=== PATIENT | male | born 1940 | race Caucasian/White ===

== ENCOUNTER 2019-03-12 01:56 | Inpatient (IN) | payer OTHER ==
[~2019-03-12] VITALS: Ht 175.3 cm; Wt 90.4 kg
[2019-03-12] MEDS ORDERED: LABETALOL HCL100 MG PO (02:10)
[2019-03-12] MEDS ORDERED: PREDNISONE20 MG PO (02:11)
[2019-03-12] MEDS ORDERED: CILOSTAZOL100 MG PO (02:11)
[2019-03-12] MEDS ORDERED: LISINOPRIL20 MG PO (02:11)
[2019-03-12] MEDS ORDERED: LASIX40 MG PO (02:12)
[2019-03-12] MEDS ORDERED: ULTRAM50 MG PO (02:13)
[2019-03-12] MEDS ORDERED: NORCO 5-325 TA1 EACH PO (02:13)
[2019-03-12] MEDS ORDERED: ASPIR 8181 MG PO (02:13)
[2019-03-12] MEDS ORDERED: VITAMIN D-32000 UNIT PO (02:14)
[2019-03-12] MEDS ORDERED: CALCIUM500 MG PO (02:14)
--- NOTE | 2019-03-12 03:45 | NUR ---
patient arrived to unit via stretcher, assisted to bed with RN Lizbet and DENISSE Dorantes. Breathing is unlabored, SpO2 96% on 3L O2 via oxymask. Patient reports 5/10 substernal chest pain, describes as tight and heavy feeling. Denies pain radiating. Alert and oriented x4, peripheral pulses felt throughout, 1+ edema in BLE noted. Lungs are clear, breathing is unlabored. Snyder present, pale yellow urine noted, IV sites intact.
--- NOTE | 2019-03-12 04:02 | NUR ---
2 mg IV morphine given for 6/10 substernal chest pain, no changes in characteristics. Patient denies further needs. Call light within reach.
--- NOTE | 2019-03-12 04:37 | NUR ---
Patient continues to have 5/10 substernal chest pain, no changes in pain character, another 2 mg IV morphine given. Patient denies futher needs.
--- NOTE | 2019-03-12 04:41 | NUR ---
Patient placed back on BiPAP, SpO2 96% on 30% FiO2. Patient also given 2 mg IV morphine PRN for continued 6/10 chest pain in sternum described as "tight and pressure." Heart rate 112, RR 15, BP 107/67 (76) after morphine administration. Patietn denies further needs at this time. Call light within reach, at bedside.
--- NOTE | 2019-03-12 05:10 | NUR ---
Dr. Conrad notified that patient continues to have 3 to 4/10 substernal chest pain, received order for x1 dose of 4 mg IV morphine. Patient's breathing remains unlabored.
--- NOTE | 2019-03-12 05:30 | NUR ---
x1 dose of IV morphine not given due to systolic of 89 and MAP 58, no changes in patient's mentation, breathing remains unlabored.
--- NOTE | 2019-03-12 05:59 | NUR ---
Patient taken off BiPAP due to BP of 79/54 (59), heart rate 109. Patient reports 3/10 pain in chest, substernal, characteristics remain the same.
--- NOTE | 2019-03-12 06:18 | NUR ---
Notified Dr. Conrad that patient has had sustained hypotension with systolic between 72 and 76, MAP between 52 and 58, also notified her that one time dose of 4 mg IV morphine not given due to hypotension. NS bolus of 500 ml over one hour ordered. No changes in CP, remains 3/10. Patient is drowsy, responds promptly to voice.
--- NOTE | 2019-03-12 06:20 | NUR ---
Dr. Conrad notified that patient's repeat troponin was 0.463 ng/ml, received order for stat EKG. Patient has had no change in chest pain, states it is 3/10. Restful with eyes closed, SpO22 94% on 2L O2 via oxymask.
--- NOTE | 2019-03-12 06:48 | EKG ---
[facility] [address] [facility] [place] [address] Signed Sinus tachycardia Possible Left atrial enlargement Incomplete right bundle branch block Borderline ECG No previous ECGs available Confirmed by SIMI BOLIVAR MD ([id number]) on 03/12/2019 6:47:55 AM Electronically Signed By: SIMI BOLIVAR MD 03/12/19 0648 PATIENT NAME: DAMION LOO Electrocardiogram DATE OF : 38 PHYSICIAN: SIMI BOLIVAR MD REPORT #: [id number] REPORT IS CONFIDENTIAL AND NOT TO BE RELEASED WITHOUT AUTHORIZATION
--- NOTE | 2019-03-12 07:04 | NUR ---
DR. BOLIVAR TO BEDSIDE TO EVALUATE PATIENT
--- NOTE | 2019-03-12 09:17 | NUR ---
UT C/O CHEST P[RESSURE, 4MG MORPHINE IVP GIVEN AT THIS TIME. FAMILY REMAINS AT THE BEDSIDE.
[2019-03-12] MEDS ORDERED: PREDNISONE5 MG PO (09:33)
[2019-03-12] MEDS ORDERED: FINASTERIDE5 MG PO (09:35)
[2019-03-12] MEDS ORDERED: ATORVASTATIN CA20 MG PO (09:35)
--- NOTE | 2019-03-12 10:00 | NUR ---
SPOKE WITH PATIENT, SON IN ROOM. IS ASLEEP IN ROOM. PATIENT STATES HE LIVES WITH IN [place]. STATES HE DOES HAVE PCP THERE AT [facility]. PATIENT STATES HE PLANS TO RETURN HOME AT DISCHARGE. IS NORMALLY INDEPENDENT, DOES HAVE A WALKER AND CANE. PATIENT DENIES NEEDS FOR SAFE DISCHARGE HOME. DOES UNDERSTAND HE SHOULD NOT DRIVE SELF HOME. SON STATES HE IS HERE TO HELP WITH THIS. DISCUSSED HE SHOULD UNDERSTAND DIAGNOSIS, FOLLOW UP NEEDS, MEDICATIONS AND SIDE EFFECTS BEFORE DISCHARGE. THEY STATE UNDERSTANDING. QUESITONS ANSWERED. WILL CONTINUE TO FOLLOW NEEDED. STAFF UPDATED.
[2019-03-12] MEDS ORDERED: TYLENOL EXTRA500 MG PO (10:23)
[2019-03-12] MEDS ORDERED: MULTI VITAMIN1 EACH PO (10:23)
--- NOTE | 2019-03-12 10:24 | NUR ---
MED REC COMPLETE
--- NOTE | 2019-03-12 14:58 | NUR ---
PT STATES THAT CHEST PRESSURE IS LESS, 2 RABBITS ON HIS CHEST. HAS BEEN RESTING COMFORTABLE IN THE ROOM .
--- NOTE | 2019-03-12 15:52 | EKG ---
[facility] [address] [facility] [place] [address] Signed Sinus rhythm with premature atrial complexes Possible Left atrial enlargement Incomplete right bundle branch block Nonspecific ST and T wave abnormality Prolonged QT Abnormal ECG When compared with ECG of 12-MAR-2019 02:04, premature atrial complexes are now present ST no longer elevated in Anterior leads Nonspecific T wave abnormality now evident in Anterolateral leads Confirmed by SIMI BOLIVAR MD ([id number]) on 03/12/2019 3:52:15 PM Electronically Signed By: SIMI BOLIVAR MD 03/12/19 1552 PATIENT NAME: DAMION LOO Electrocardiogram DATE OF : 38 PHYSICIAN: SIMI BOLIVAR MD REPORT #: [id number] REPORT IS CONFIDENTIAL AND NOT TO BE RELEASED WITHOUT AUTHORIZATION
--- NOTE | 2019-03-12 17:25 | NUR ---
PT FEELING BETTER AT THIS TIME, WAS ASKING ABOUT PAIN MEDS FOR SLEEP TONIGHT. PT GIVEN SOME CLEAR LIQUIDS AT THIS TIME. FAMILY HAS LEFT AT THIS TIME. PT DENIES PAIN AT THIS TIME, AND HAS LESS CHEST PRESSURE.
--- NOTE | 2019-03-12 17:48 | NUR ---
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
--- NOTE | 2019-03-12 18:56 | NUR ---
LAB HERE AT THIS TIME TO OBTAIN SAMPLE.
--- NOTE | 2019-03-12 19:52 | NUR ---
CIRO IS AT THIS TIME 1.36. MD BOLIVAR IS BEING CALLED NOW. LAB CALLED AT 1950. MD BOLIVAR IS COMING TO CCU AT THIS TIME.
--- NOTE | 2019-03-12 20:00 | NUR ---
PT AT THIS TIME DENIES SOB AND CHEST PAIN. LOBES HAVE CRACKLES IN THE BASES AND EXPIRATORY WHEEZING IN THE UPPER LOBES. ABD SOUNDS ARE PRESENT. CHEST PAIN WILL COME BACK AGAIN ONCE MORPHINE WEARS OFF STATED BY PT. RADIAL PULSES +2, BILATERAL ARM STRENGTH +5. LEFT LEG STRENGTH +5, RIGHT LEG STRENGTH +2. PEDIS PULSES +1, BILATERAL LOWER LEG/FOOT EDEMA PRESENT +1. PT IS AAO X4. WILL CONTINUE TO MONITOR.
--- NOTE | 2019-03-12 22:00 | NUR ---
PT AT THIS TIME IS SLEEPING. V/S ARE BETTER, HR <100. NO NEW CONCERNS NOTED AT THIS TIME.
--- NOTE | 2019-03-13 | NUR ---
PT AT THIS TIME IS AWAKE DUE TO LEFT SHOULDER PAIN WHICH HE OCCASIONALLY GETS. PRN PO TYLENOL WAS GIVEN. PT DENIES SOB AND CHEST PAIN AT THIS TIME. ALL LOBES HAVE EXPIRATORY WHEEZING PRESENT. WILL CONTINUE TO MONITOR. NO NEW CONCERNS NOTED OTHERWISE.
--- NOTE | 2019-03-13 01:51 | NUR ---
LEFT SHOULDER PAIN IS WORSE AT THIS TIME 06/09. GAVE 2MG IV MORPHINE. WILL CONTINUE TO MONITOR. V/S OVERLL ARE WDL.
--- NOTE | 2019-03-13 03:47 | NUR ---
0315 PT CALLED OUT FOR SOB. HR AT THAT TIME JUMPED UP TO THE 130'S AND WAS SUSTAINED. PT ALSO HAD CHEST PRESSURE AGAIN. UPON ASCULTAION OF HIS LUNG, ALL LOBES SOUNDED VERY CONSTRICTED WITH NOT MUCH AIR MOVEMENT PRESENT. MD BOLIVAR WAS CALLED AT ABOUT 0318. LASIX 20MG IV ONCE ORDER WAS RECEIVED AND MORNING LABS WERE TO BE DRAWN EARLY WELL. A TROPONIN LAB WAS ADDED WELL SINCE THERE WAS NONE SCHEDULED A FOLLOW-UP FOR HIS CRITICAL VALUE AT 1900 ON 03/12/19. PT IS NOW ON BI-PAP AT THIS TIME. PT ALSO RECEIVED A NEB TX. WILL CONTINUE TO MONITOR.
--- NOTE | 2019-03-13 04:11 | NUR ---
SOB AND CHEST PAIN ARE SLIGHLTY BETTER AT THIS TIME STATED BY PT. WILL CONTINUE TO MONITOR.
--- NOTE | 2019-03-13 05:30 | NUR ---
RECEIVED CRITICAL TROPONIN AT 0529 FROM LAB ([facility]) . TROPONIN IS 1.25. MD BOLIVAR WAS CALLED AT 0530 WITH RESULTS. NO ORDERS WERE GIVEN IN REGARDS TO TREATMENT. WILL CONTINUE TO MONITOR.
--- NOTE | 2019-03-13 05:51 | NUR ---
AT START OF SHIFT PT DENIED SOB AND CHEST PAIN. TROPONIN AT 1900 WAS 1.36, MD BOLIVAR WAS CALLED AND CAME TO THE UNIT. MD BOLIVAR CONSULTED WITH A DUCK FARMER WHO SUGGESTED TO KEEP THIS PT HERE. PT DID RECEIVE A ONE TIME ORDER OF 5MG LOPRESSOR IV. LOBES AT START OF SHIFT HAD CRACKLES IN HE BASES AND EXPIRATORY WHEEZING IN THE UPPER LOBES. BILAERAL LOWER LEG EDEMA +1, PEDIS PULSES +1, RIGHT LEG STRENGTH +2, OTHERWISE OVERALL STRENGTH +5. PT RESTED FOR A WHILE AND AT AROUND 0000 STARTED TO COMPLAIN OF LEFT SHOULDER PAIN. PRN TYLENOL AND A HOT PACK WAS GIVEN. AT 0315 PT CALLED OUT STATING HE WAS SHORT OF BREATH. HIS HR WAS IN THE 130'S SUSTAINED. O2 SATS DROPPED TO 86% OR SO ON 21 O2 OXYMASK. MD BOLIVAR WAS CALLED AGAIN, 20MG IV LASIX WAS GIVEN, 4MG MORPHINE WAS GIVEN AND RT GAVE NEB TX. SINCE THEN CHEST PAIN AND SOB HAVE SUBSIDED ENOUGH TO THE POINT WHERE PT HAS BEEN ABLE TO SLEEP AGAIN. LABS WERE DRAWN EARLY AND AN ORDER FOR TROPONIN WAS ADDED. LAB CALLED AT 0529 WITH A CRITICAL TROPONIN OF 1.25, MD BOLIVAR WAS NOTIFIED RIGHT AWAY. NO NEW ORDERS WERE GIVEN. PT AT THIS TIME IS RESTIN WITH BI-PAP ON.
--- NOTE | 2019-03-13 07:30 | NUR ---
REPORT RECIEVED. PATIENT IN RESTFUL SITTING UP IN BED ON BIPAP.
--- NOTE | 2019-03-13 08:00 | NUR ---
ASSESSMENT DONE. TALKED WITH PAIHALEY ABOUT PLAN OF CARE FOR DAY. IS UNDERSTANDING. HAS MILD CHEST DISCOMFORT 2/. DENIES NEED FOR PAIN MEDICATION. HALLMAN CATH PATENT WITH CLEAR YELLOW URINE NOTED. IS DIAPHOTIC. DENIES NAUSEA.
--- NOTE | 2019-03-13 08:02 | EKG ---
[facility] [address] [facility] [place] [address] Signed Sinus tachycardia Possible Left atrial enlargement Nonspecific ST abnormality Abnormal ECG When compared with ECG of 12-MAR-2019 06:49, premature atrial complexes are no longer present Nonspecific T wave abnormality no longer evident in Anterior leads Confirmed by SIMI BOLIVAR MD ([id number]) on 03/13/2019 8:02:23 AM Electronically Signed By: SIMI BOLIVAR MD 03/13/19 0802 PATIENT NAME: DAMION LOO Electrocardiogram DATE OF : 38 PHYSICIAN: SIMI BOLIVAR MD REPORT #: [id number] REPORT IS CONFIDENTIAL AND NOT TO BE RELEASED WITHOUT AUTHORIZATION
--- NOTE | 2019-03-13 09:00 | NUR ---
DR. BOLIVAR IS HERE TO SEE PATIENT AND TALK WITH FAMILY. JULITA RECIEVED TO GIVE ROUTINE MEDICATIONS, HOLD LISINOPRIL. THIS DONE.
--- NOTE | 2019-03-13 09:30 | NUR ---
SAT AT BEDSIDE. SPONGE BATH GIVEN. THEN TO CHAIR WITH ASSIST. O2 IS OXYMASK AT 4 L. H UP TO 122 WITH ANSFER TO CHAIR. DENIES INCREASED CHEST PAIN OR SHORTNESS OF BREATH.
--- NOTE | 2019-03-13 09:50 | NUR ---
MORPHINE 4 MG IV GIVEN FOR C/O SUBSTERNAL CHEST PAIN 4/10 AND LEFT SHOULDER PAIN, 2/10. PATIENT IS SITTING IN CHAIR. FAMILY IS IN ROOM. O2 SOURCE IS OXYMASK AT 4 L.
--- NOTE | 2019-03-13 10:00 | NUR ---
BACK TO BED WITH ASSIST. WALKER USED FOR TRANSFERS. AND SON REMAIN IN ROOM. BIPAP REAPPLIED UPON RETURN TO BED.
--- NOTE | 2019-03-13 10:30 | NUR ---
O2 SOURCE TO NC AT 2 L. JELLO GIVEN. STATES THIS IS THE BEST HE HAS FELT SINCE BEING IN HOSPITAL.
--- NOTE | 2019-03-13 11:15 | NUR ---
DR. BOLIVAR AWARE OF BP-79/57 (64). NO FUTHER ORDERS AT THIS TIME.
--- NOTE | 2019-03-13 12:00 | NUR ---
SAT UP IN BED TO TAKE LUNCH, SOUP AND PUDDING. DENIES NAUSEA. DENEIS CHEST PAIN, SHORTNESS OF BRREATH, SKIN IN WARM AND SLIGHTLY DAMP.
--- NOTE | 2019-03-13 13:20 | NUR ---
LASIX 20 MG IV GIVEN., PER ORDERS. HALLMAN CATH PATENT. SL BC AC PATENT.
--- NOTE | 2019-03-13 14:00 | NUR ---
NAPPING. RESP EQUAL AND NON LABORED.
--- NOTE | 2019-03-13 16:20 | NUR ---
dr. loza aware of BP-78/59 (59). ORDERS RECIEVED TO GIVE 250 ML NS OVER ONE HR.
--- NOTE | 2019-03-13 17:25 | NUR ---
ns 250 ml infused.
--- NOTE | 2019-03-13 18:52 | NUR ---
DR. BOLIVAR UPDATED ON PATIENT STATUS. NO FUHER ORDERS AT THIS TIME. PATIENT IS RESTFUL WATCHING TV. DENIES NEED FOR PAIN MEDICATION.
--- NOTE | 2019-03-13 19:30 | NUR ---
RECEIVED REPORT AT 1900, PT WAS IN BED AND APPEARED COMFORTABLE. V/S OVERALL WERE WDL WITH THE EXCEPTION OF HIS BP. PT AT THAT TIME WAS HYPOTENSIVE. PER MD BOLIVAR, THE GOAL FOR TONIGHT IS TO KEEP HIS MAP >60 AND TO KEEP HIM FREE OF CHEST PAIN.
--- NOTE | 2019-03-13 20:44 | NUR ---
PT IS STILL HYPOTENSIVE, BUT HIS MAPT IS 67 AT THIS TIME. RUL/JEANIE HAVE EXPIRATORY WHEEZING PRESENT. ALL OTHER LOBES HAVE CRACKLES PRESENT AT THIS TIME. PT DENIES ANY SOB HOWEVER. O2 SATS ARE 96% NC ON 2L O2. S1 S2 HEARD. ABD SOUNDS ARE PRESENT, PT HOWEVER HAS NOT HAD A BM SINCE 03/11/19. PT IS PASSING LOTS OF FLATUS. LEFT HAND EDEMA +1, WHICH IS NEW SINCE LAST NIGHT. BILATERAL LOWER LEG NOHEMY +1 RADIAL PULSES +2, PEDIS PULSES +1, TOES ARE WARM TO TOUCH. WILL CONTINUE TO MONITOR, NO NEW COCNERNS NOTED AT THIS TIME.
--- NOTE | 2019-03-13 21:00 | NUR ---
PT IS SLEEPING AT THIS TIME. BP LOW AT 83/66 (69). WILL CONTINUE TO MONITOR.
--- NOTE | 2019-03-13 22:00 | NUR ---
LABETELOL WAS HELD, MD BOLIVAR IS AWARE. WILL CONTINUE TO MONITOR HR/BP/ URINE OUTPUT. NEW IV SITES X2 HAVE BEEN STARTED WELL.
--- NOTE | 2019-03-13 23:02 | NUR ---
PT IS SLEEPING AT THIS TIME. URINE OUTPUT FOR THE PAST 2HRS WAS 60ML. BP STILL LOW.
--- NOTE | 2019-03-14 00:08 | NUR ---
BP AT 2330 WAS 74/56 (60). MD BOLIVAR WAS CALLED AND AN ORDER FOR A 250ML NS BOLUS WAS RECEIVED. BOLUS IS CURRENTLY RUNNING. WILL CONTINUE TO MONITOR. ALL LOBES AT THIS TIME HAVE INSPIRATORY AND EXPIRATORY WHEEZING PRESENT. WILL CONTINUE TO MONITOR. PT DENIES SOB AND CHEST PAIN. OTHERWISE SECOND ASSESSMENT HAS NOT CHANGED IN REGARDS TO OTHER SYSTEMS.
--- NOTE | 2019-03-14 01:00 | NUR ---
PT AT THIS TIME IS SLEEPING. 250ML BOLUS HAS FINISHED. BP WAS BETTER 84/63 (68). WILL CONTINUE TO MONITOR.
--- NOTE | 2019-03-14 02:58 | NUR ---
PT IS STILL SLEEPING AT THIS TIME. NO IV MORPHINE NEEDED SO FAR. V/S SO FAR ARE ACCEPTABLE GIVEN THE CIRCUMSTANCES.
--- NOTE | 2019-03-14 04:25 | NUR ---
PT AT THIS TIME IS REPORTING CHEST PAIN 3/10. 2MG MORPHINE IV TO BE GIVEN. HR AT THIS TIME IN THE LOW 120'S.
--- NOTE | 2019-03-14 04:50 | NUR ---
CHEST PAIN IS STILL 3/10. AN ADDITIONAL 2MG IV MORPHINE TO BE GIVEN. HR STILL UPPER ONE TEENS TO LOW 120'S. SBP IS >100, MAP 81 AT THIS TIME.
--- NOTE | 2019-03-14 05:41 | NUR ---
AT THIS TIME CHEST PAIN IS STILL 2/10. HR IS ANYWHERE FROM 113-139. BP 82/65 (68). MD BOLIVAR WAS CALLED. NO NEW ORDERS WERE GIVEN. WILL CONTINUE TO MONITOR.
--- NOTE | 2019-03-14 06:43 | NUR ---
BP HAS BEEN AN ISSUE ALL NIGHT OVERALL. BP HAS REMAIND LOW WITH AN OVERALL ADEQUATE MAP. URINE OUTPUT IS BOARDERLINE ADEQUATE OVERALL. LOBES AT START OF SHIFT HAD CRACKLES IN THE BASES AND WHEEZING PRESENT. AT THIS TIME NO CRACKLES ARE PRESENT. PERIPHERAL EDEMA HAS INCREASED SOME THIS SHIFT. MAINLY BILATERAL LOWER EXTREMETIES AND HIS LEFT ARM. ABD SOUNDS ARE PRESENT. O2 SATS HAVE BEEN >92% ON 2L O2 ALL NIGHT AND RR WAS MOSTLY NORMAL <20. AT 2345 BP WAS LOW AND A 250ML NS BOLUS WAS GIVEN PER MD ORDER. PT THEN SLEPT FOR A GOOD WHILE. AT 0425 PT HAD AN EPISODE OF CHEST PAIN AND 4MG MORPHINE WAS GIVEN. IT DID NOT RELIEF HIS CHEST PAIN COMPLETELY. AT ABOUT THE SAME TIME HIS HR WENT UP INTO THE 120'S AT FIRST AND THEN JUMPED HIGH 140 AT TIMES. MD BOLIVAR WAS CALLED BUT NO NEW ORDERS WERE GIVEN.
--- NOTE | 2019-03-14 08:00 | NUR ---
AWAKE, ASSESSMENT DONE. TRIP-1.48. DR. OSMEL PEREZ VIA PHONE. MD AWARE OF VITAL SIGNS. U/O, TRIP VALUE. NO FUTHER ORDERS AT THIS TIME, PLAN IS TO DISCHARGE PATIENT TODAY. PATIENT SITING UP IN BED READY TO EAT BREAKFAST.
--- NOTE | 2019-03-14 09:04 | NUR ---
PT IN SVT WITH HR IN 170'S. DR. BOLIVAR NOTIFIED.
--- NOTE | 2019-03-14 09:11 | NUR ---
DR. BOLIVAR AT THE BEDSIDE ALONG WITH THIS RN- FIRST DOSE OF 5 MG IV METOPOLOL GIVEN FOR SVT HR MAINTAINING BETWEEN 170'S-180'S
--- NOTE | 2019-03-14 09:18 | NUR ---
SECOND DOSE OF 5 MG IV METOPROLOL FOR CONTINUING SVT. DR. BOLIVAR REMAINS AT THE BEDSIDE.
--- NOTE | 2019-03-14 09:30 | NUR ---
MORPHINE 4 MG IV GIVEN FOR CHEST THIGHTNESS. SEE MONITOR PRINT OUT FOR HEART RHYTHM AND RATE, AND FREQUENT VITAL SIGNS.
--- NOTE | 2019-03-14 09:52 | NUR ---
[id number] TIME PERIOD OF FREQUENT PAUSES DURING SVT
--- NOTE | 2019-03-14 09:53 | NUR ---
THIS TELE BAND SAWING MACHINE OPERATOR NOTES AT THIS TIME ON TELE MONITOR PT IS NO LONGER IN SVT WITH PAUSES BUT IS MAINTAINING SINUS TACH WITH HR 100-110.
--- NOTE | 2019-03-14 10:14 | NUR ---
MONITOR SHOWS ST, BP-76/51 (57). DENEIS CHEST PAIN. FAMILY IN ROOM.
--- NOTE | 2019-03-14 12:15 | NUR ---
UP TO LINDA FOR LUNCH. HR AT REAT 109, HR WITH EXERTION 122. DENEIS DIZZINESS. STATES HE FEELS WEAK.
--- NOTE | 2019-03-14 14:10 | NUR ---
MONITOR SHOW AFIB/RVR. DENIES SHORTNESS OF BREATH, CHEST PAIN OR PALPATIONS. DR. BOLIVAR UPDATED. LOPESSOR 5 MG IV ORDERED.
--- NOTE | 2019-03-14 14:15 | NUR ---
LOPRESSOR 5 MG IV GIVEN PER ORDERS. SEE STIPS.
--- NOTE | 2019-03-14 14:53 | NUR ---
SLEEPING AFTER ATIVAN. FAMILY MEMBERS AT BEDSIDE.
--- NOTE | 2019-03-14 16:00 | NUR ---
DR. BOLIVAR UPDATED ON HYPOTENSION, SUNDAY RECIEVED TO GIVEN 250 ML NS.
--- NOTE | 2019-03-14 16:20 | NUR ---
NS 250 ML HUNG. CHASITY IS AWAKE, DR. BOLIVAR IS IN ROOM TALKIG WITH PATIENT AND PATIENT FAMILY.
--- NOTE | 2019-03-14 17:36 | NUR ---
DR. BOLIVAR AAWARE OF LABS. CREAT-4.31
--- NOTE | 2019-03-14 17:39 | NUR ---
SITTING UP IN BED EATING DINNER.
--- NOTE | 2019-03-14 18:00 | NUR ---
ORDERS RECIEVED TO TRANSFER TO [facility] IN [facility]. PATIENT AND FAMILY AWARE.
--- NOTE | 2019-03-14 18:15 | NUR ---
LEVOPHED GTT HUNG AT 5 MCG/MIN. WILL TITRATE ACCORDINGLY.
--- NOTE | 2019-03-14 18:30 | NUR ---
LEVOPHED GTT INCREASED TO 7 MCG/MIN.
--- NOTE | 2019-03-14 18:40 | NUR ---
[facility] HERE, REPORT TO THEM.
--- NOTE | 2019-03-14 19:00 | NUR ---
REPORT TO [facility] RN.
== END 2019-03-14 19:00 | disposition short-term general hospital (02) | DRG 193 ==
LOC: ED 01:56 → CCU 01:59 → ED 01:59 → CCU 08:03
PROVIDERS: ADMIT Internal Medicine
DX: J18.9 Pneumonia, unspecified organism (principal); J96.01 Acute respiratory failure with hypoxia; I21.A1 Myocardial infarction type 2; N18.4 Chronic kidney disease, stage 4 (severe); N17.9 Acute kidney failure, unspecified; E27.3 Drug-induced adrenocortical insufficiency; R60.9 Edema, unspecified; I73.9 Peripheral vascular disease, unspecified; I48.91 Unspecified atrial fibrillation; F17.210 Nicotine dependence, cigarettes, uncomplicated; I50.9 Heart failure, unspecified; T38.0X5A Adverse effect of glucocorticoids and synthetic analogues, initial encounter; M21.379 Foot drop, unspecified foot; G62.9 Polyneuropathy, unspecified; Z88.1 Allergy status to other antibiotic agents; Z86.73 Personal history of transient ischemic attack (TIA), and cerebral infarction without residual deficits; Z79.82 Long term (current) use of aspirin; Z79.891 Long term (current) use of opiate analgesic; Z79.52 Long term (current) use of systemic steroids; Z79.899 Other long term (current) drug therapy
CPT/HCPCS: 36415; 36600; 51702; 71045; 80048; 80053; 80202; 82803; 83605; 83735; 83880; 84484; 85025; 85379; 87040; 93005; 93010; 94640; 94644; 94660; 99285-25; C9113; J0456; J0692; J0696; J1650; J1720; J1940; J2060; J2270; J3370; J7030; J7040; J7060